=== PATIENT | female | born 1950 | race Caucasian/White ===

== ENCOUNTER 2017-10-11 18:45 | Inpatient (IN) ==
[2017-10-11] MEDS ORDERED: Vancomycin 1,750 MG in D5% in Water 250 ML IVPB ONE (19:18)
--- NOTE | 2017-10-11 19:29 | Emergency Department Note ---
Disposition Clinical Impression: Cellulitis Qualifiers: Site of cellulitis: extremity Site of cellulitis of extremity: lower extremity Laterality: right Qualified Code(s): L03.115 - Cellulitis of right lower limb Disposition: Admitted As Inpatient Condition: Fair Time of Disposition: 20:58 Extremity Problem HPI - General Chief complaint: ED Extremity Problem,Nontraumatic Stated complaint: RIGHT HIP PAIN/SWELLING Time Seen by Provider: 10/11/17 18:49 Source: other Limitations: other Nursing Notes Reviewed: Yes Vital Signs Reviewed: Yes - History of Present Illness HPI Narrative: Patient presents with right leg and hip pain which began today with associated redness which is progressive and constant and this was noticed by the caregivers today. There is no fever. Minimal confusion which is hard to differentiate as the patient does have a history of MRDD. [facility] No vomiting. Patient does have a history of a right hip replacement several years ago with then a joint infection which was treated in [place]. There is pain with range of motion of the hip. Social history: snf Pain Scale: 5 - Related Data Home Medications Medication Instructions Recorded Confirmed Acetaminophen [Tylenol] 650 mg PO Q4H PRN 10/18/15 10/11/17 Atorvastatin Calcium [Lipitor] 20 mg PO HS 10/18/15 10/11/17 Benztropine [Cogentin] 0.5 mg PO HS 10/18/15 10/11/17 Calcium Carbonate/Vitamin D3 1 each PO BID 10/18/15 10/11/17 [Calcium 500-Vit D3 400 Tablet] Clomipramine HCl [Anafranil] 50 mg PO HS 10/18/15 10/11/17 Furosemide [Lasix] 20 mg PO DAILY 10/18/15 10/11/17 Loratadine [Claritin] 10 mg PO DAILY 10/18/15 10/11/17 Magnesium Hydroxide [Milk of 30 ml PO DAILY PRN 10/18/15 10/11/17 Magnesia] Omeprazole [PriLOSEC] 20 mg PO DAILY 10/18/15 10/11/17 Amino AC/Protein Hydr/Whey Pro 30 ml PO TID 10/11/17 10/11/17 [Prosource Plus Liquid Packet] Carvedilol 3.125 mg PO BID 10/11/17 10/11/17 Ferrous Sulfate 325 mg PO TID 10/11/17 10/11/17 Levothyroxine [Synthroid] 25 mcg PO 0630 10/11/17 10/11/17 Multivitamin [One Daily Essential] 1 each PO DAILY 10/11/17 10/11/17 Nystatin POWDER [Nystop] 1 appl TP DAILY 10/11/17 10/11/17 OLANZapine [Zyprexa] 5 mg PO HS 10/11/17 10/11/17 Polyethylene Glycol 3350 [MiraLAX] 17 gm PO DAILY 10/11/17 10/11/17 Rivaroxaban [Xarelto] 20 mg PO DAILY 10/11/17 10/11/17 Allergies Allergy/AdvReac Type Severity Reaction Status Date / Time No Known Allergies Allergy Verified 10/11/17 20:08 Review of Systems: Constitutional: No fever Vision: No blurred vision ENT: No rhinorrhea Respiratory: No cough Allergic: No allergies : No blood in urine GI: No blood in stool Hematologic: No bruising Dermatologic: + skin rash Musculoskeletal: + pain in the extremities Neuro: No numbness of the extremities Past Medical History - Past Medical History Medical history: Reports: arthritis, CHF, dementia, glaucoma, hyperlipidemia, hypertension, osteoporosis, seizures Surgical history: Reports: no surgical history Psychiatric history: Reports: anxiety, bipolar, depression - Social History Smoking Status: Never smoker Smokeless Tobacco Status: No Alcohol use: Reports: none Drug use: Reports: none Physical Exam CONSTITUTIONAL: Alert and oriented X3, well-nourished, well appearing, in no apparent distress HEAD: Normocephalic; atraumatic. EYES: PERRL, no scleral icterus. NOSE: The nose is normal in appearance without rhinorrhea RESP: Normal chest excursion with respiration; breath sounds clear and equal bilaterally; no wheezes, rhonchi, or rales CARD: Regular rhythm, without murmurs, rub or gallop ABD: Non-distended; non-tender, soft,without rigidity, rebound or guarding SKIN: Normal for age and race; warm and dry; no apparent lesions Extremities: Does have generalized erythema of the right leg from the hip extending inferiorly and also extending to the pubic area medially. There is no crepitus, necrosis, fluctuance. There is some pain with range of motion of the right hip but not a significant severe amount of pain. Does have significant swelling right lower extremity - General Limitations: other General appearance: alert Course Vital Signs Temperature 97.9 F 10/11/17 18:47 Pulse Rate 96 10/11/17 18:47 Respiratory Rate 18 10/11/17 18:47 Blood Pressure 139/80 10/11/17 18:47 O2 Sat by Pulse Oximetry 98 10/11/17 18:47 Temperature 97.9 F 10/11/17 18:47 Pulse Rate 100 10/11/17 20:50 Respiratory Rate 20 10/11/17 20:50 Blood Pressure 133/79 10/11/17 20:50 O2 Sat by Pulse Oximetry 95 10/11/17 20:50 Oxygen Delivery Oxygen Delivery Room Air Extremity Problem, Nontraumati - MDM Narrative Medical decision making narrative: Patient does have a clinically diagnosed cellulitis of the right lower extremity , the hip x-rays being done however does not have significant pain with range of motion of the right hip but this is concerning based on the fact she does have a prosthetic joint. Doppler study will be done also because her significant swelling of the right lower extremity in addition to the generalized erythema. Patient is started on vancomycin. Will be admitted to medicine 0 I did speak with the hospitalist who accepted the patient for admission. I did speak with Dr. Hopper from orthopedics and he request out on a CRP and a CT scan and he will follow the results of these in the morning. The patient is not septic in appearance. His conversational. Breathing comfortably. No increased confusion from baseline. 2017 Doppler neg for clot but leg incompletely visualized 2051 - Medical Records Medical records reviewed: Yes I reviewed the patient's medical records. - Lab Data Result diagrams: 10/11/17 19:52 10/11/17 19:52 Lab Results 10/11/17 10/11/17 10/11/17 Range/Units 19:52 19:52 19:52 WBC 7.5 (4.3-11.1) K/mcL RBC 4.12 (3.82-4.97) M/mcL Hgb 11.8 (11.5-15.4) g/dL Hct 37.8 (35.3-44.9) % MCV 91.7 (83.0-100.0) fL MCH 28.6 (28.0-33.3) pg MCHC 31.2 L (31.6-35.5) g/dL RDW 13.5 (11.5-14.5) % Plt Count 88 L (140-400) K/mcL MPV 11.8 (9.4-12.4) fL Immature Plt Fraction 6.3 H (1.1-6.1) % ESR >= 130 H (0-15) mm/hr Sodium 141 (136-145) mEq/L Potassium 4.2 (3.5-4.5) mEq/L Chloride 102 (98-109) mEq/L Carbon Dioxide 31 H (19-29) mEq/L BUN 54 H (7-20) mg/dL Creatinine 1.45 H (0.57-1.11) mg/dL Est GFR ( Amer) 44 L (> 60) Est GFR (Non-Af Amer) 36 L (> 60) BUN/Creatinine Ratio 37 H (6-26) Glucose 92 (70-99) mg/dL Calculated Osmolality 306 H (280-300) Lactic Acid (0.5-2.2) mmol/L Calcium 10.4 (8.6-10.8) mg/dL C-Reactive Protein (Less than 5) mg/L 10/11/17 10/11/17 Range/Units 19:52 20:25 WBC (4.3-11.1) K/mcL RBC (3.82-4.97) M/mcL Hgb (11.5-15.4) g/dL Hct (35.3-44.9) % MCV (83.0-100.0) fL MCH (28.0-33.3) pg MCHC (31.6-35.5) g/dL RDW (11.5-14.5) % Plt Count (140-400) K/mcL MPV (9.4-12.4) fL Immature Plt Fraction (1.1-6.1) % ESR (0-15) mm/hr Sodium (136-145) mEq/L Potassium (3.5-4.5) mEq/L Chloride (98-109) mEq/L Carbon Dioxide (19-29) mEq/L BUN (7-20) mg/dL Creatinine (0.57-1.11) mg/dL Est GFR ( Amer) (> 60) Est GFR (Non-Af Amer) (> 60) BUN/Creatinine Ratio (6-26) Glucose (70-99) mg/dL Calculated Osmolality (280-300) Lactic Acid 0.8 (0.5-2.2) mmol/L Calcium (8.6-10.8) mg/dL C-Reactive Protein 211 H (Less than 5) mg/L
[2017-10-11] MEDS ORDERED: Vancomycin 1,750 MG in D5% in Water 500 ML IVPB ONE (19:31)
[2017-10-11 20:06] LABS: Hemoglobin 11.8 g/dL (11.5-15.4)
[2017-10-11 20:07] LABS: Hematocrit 37.8 % (35.3-44.9); Immature Platelets 6.3 % (1.1-6.1); Mean Corpuscular HGB Conc 31.2 g/dL (31.6-35.5); Mean Corpuscular Hemoglobin 28.6 pg (28.0-33.3); Mean Corpuscular Volume 91.7 fL (83.0-100.0); Mean Platelet Volume 11.8 fL (9.4-12.4); Red Blood Count 4.12 M/mcL (3.82-4.97); Red Cell Distribution Width 13.5 % (11.5-14.5)
[2017-10-11 20:22] LABS: Calcium 10.4 mg/dL (8.6-10.8); Potassium 4.2 mEq/L (3.5-4.5)
[2017-10-11] MEDS ORDERED: Ondansetron 4 MG/2 ML VIAL IVP PRN (23:00)
[2017-10-11] MEDS ORDERED: Naloxone 0.4 MG/ML INJ IVP PRN (23:00)
[2017-10-11] MEDS ORDERED: Acetaminophen 325 MG TABLET PO PRN (23:00)
[2017-10-11] MEDS ORDERED: *HR* HYDROcodone/Acet 5/325 mg TABLET PO PRN (23:00)
[2017-10-11] MEDS ORDERED: MOM Conc 10 ML UD.LIQ PO PRN (23:02)
--- NOTE | 2017-10-11 23:10 | Internal Med History&Physical ---
<Jay De Leon T - Last Filed: 10/12/17 01:28> Date of Encounter: 10/12/17 Assessment and Plan (1) Septic arthritis Current visit: Yes Status: Suspected Qualifiers: Septic arthritis location: hip Septic arthritis organism: due to unspecified organism Laterality: right Qualified Code(s): M00.9 - Pyogenic arthritis, unspecified (2) Cellulitis Current visit: Yes Status: Acute Qualifiers: Site of cellulitis: extremity Site of cellulitis of extremity: lower extremity Laterality: right Qualified Code(s): L03.115 - Cellulitis of right lower limb Internal Medicine - H&P: HPI History of present illness: Ms. Salamanca is a 67 year old female Internal Medicine - H&P: Meds Acetaminophen [Tylenol] 650 mg PO Q4H PRN 10/18/15 [History] Atorvastatin Calcium [Lipitor] 20 mg PO HS 10/18/15 [History] Benztropine [Cogentin] 0.5 mg PO HS 10/18/15 [History] Calcium Carbonate/Vitamin D3 [Calcium 500-Vit D3 400 Tablet] 1 each PO BID 10/18 [History] Clomipramine HCl [Anafranil] 50 mg PO HS 10/18/15 [History] Furosemide [Lasix] 20 mg PO DAILY 10/18/15 [History] Loratadine [Claritin] 10 mg PO DAILY 10/18/15 [History] Magnesium Hydroxide [Milk of Magnesia] 30 ml PO DAILY PRN 10/18/15 [History] Omeprazole [PriLOSEC] 20 mg PO DAILY 10/18/15 [History] Amino AC/Protein Hydr/Whey Pro [Prosource Plus Liquid Packet] 30 ml PO TID 10/11 [History] Carvedilol 3.125 mg PO BID 10/11/17 [History] Ferrous Sulfate 325 mg PO TID 10/11/17 [History] Levothyroxine [Synthroid] 25 mcg PO 0630 10/11/17 [History] Multivitamin [One Daily Essential] 1 each PO DAILY 10/11/17 [History] Nystatin POWDER [Nystop] 1 appl TP DAILY 10/11/17 [History] OLANZapine [Zyprexa] 5 mg PO HS 10/11/17 [History] Polyethylene Glycol 3350 [MiraLAX] 17 gm PO DAILY 10/11/17 [History] Rivaroxaban [Xarelto] 20 mg PO DAILY 10/11/17 [History] 3 Allergy/AdvReac Type Severity Reaction Status Date / Time No Known Allergies Allergy Verified 10/11/17 20:08 All Systems PM: A 10-system review of systems was performed and is negative for pertinent findings except as documented above in the HPI. - Constitutional Vitals: Temp Pulse Resp BP Pulse Ox 99.9 F H 97 15 97/60 94 10/11/17 22:29 10/11/17 22:29 10/11/17 22:29 10/11/17 22:29 10/11/17 22:29 Internal Med - H&P Results - Labs CBC & Chem 7: 10/11/17 19:52 10/11/17 19:52 - Attending Attestation I have seen and examined this patient independently and discussed plan with medicine resident 67 F with MRDD, Morbid Obesity, Hypothyroid, hx of DVT o Xarelto, HLD, HTN, CKD. She is accompanied to [facility] with correction staff following complains of pain and redness of her RLE She is not a reliable historian due to MRDD Exam significant for diffuse erythema, differential warmth of her entire RLE. NO visible abscess collection, pulses are present. ROM is limited at the hip. No fluctuancy. No induration. Chest is CTAB, HS S1, S2, no m/g/r, abdomen is obese and not tender. Vitals are stable and she is afebrile. Labs and Imaging reviewed. Right hip CT with evidence of cellulitis, no OM, joint effusion. CRP and ESR elevated, no leukocytosis. Chem is at baseline. Lactate is normal A/P Cellulitis Suspect R hip septic arthritis-hx of R hip arthroplasty/ORIF. with hx of septic arthirits, elevated ESR and joint effusion is present MRDD/HTN/HLD Agree with IV antibiotics-IR for joint aspiration and send fluid for culture, follow blood cultures, ortho eval. Hold xarelto for joint aspiration Give gentle hydration Chronic medical conditions are stable Rest of details as in resident physicians documentation <Frank Abraham - Last Filed: 10/12/17 01:35> Date of Encounter: 10/12/17 Time of Encounter: 23:07 Assessment and Plan (1) Cellulitis Current visit: Yes Status: Acute - Right hip pain, erythema, swelling likely secondary to cellulitits. - other possible etiology of septic arthritis. Ortho consulted in ED. - Ortho will see in AM. - CRP 211 and ESR >130 - Pt is non septic. Afebile, no WBC - Will start vancomycin and schedule IR for joint aspiration. Qualifiers: Site of cellulitis: extremity Site of cellulitis of extremity: lower extremity Laterality: right Qualified Code(s): L03.115 - Cellulitis of right lower limb (2) Hypertension Current visit: Yes Status: Chronic - BP under control, will continue home meds. Qualifiers: Hypertension type: essential hypertension Qualified Code(s): I10 - Essential (primary) hypertension (3) Dyslipidemia Current visit: No Status: Chronic - Stable. Continue home meds. (4) Cognitive impairment Current visit: Yes Status: Chronic - Pt appears to be at baseline per correction report. - Will be discharged back to correction once therapy has been completed. (5) Chronic kidney disease Current visit: Yes Status: Acute - BUN/Cr at baseline from labs in 2014. - Avoid nephrotoxic drugs as much as possible. Qualifiers: Chronic kidney disease stage: stage 3 (moderate) Qualified Code(s): N18.3 - Chronic kidney disease, stage 3 (moderate) (6) DVT prophylaxis Current visit: Yes Status: Acute - Holding anticoagulation for IR joint aspiration tomorrow. Internal Medicine - H&P: HPI Chief complaint: right hip pain Admitted From: Emergency Dept Plans for Post Hospital Care: Home History of present illness: Ms. Salamanca is a 67 year old female with past medical history of MRDD presents to emergency department from correction with a complaint of right hip pain since yesterday. Patient states that she has noticed some redness and swelling in the area of the right hip but denies any symptoms of fevers, chills , limited range of motion, numbness, tingling. Initially, she does state that she has never expanded problem with his hip before, however upon examination involving scar tissue, she does state that she had a right hip replacement. Per chart review, she had a hip replacement approximately 3-5 years ago at [facility]. She denies any other symptoms at this time. Patient does not appear to be a reliable historian. Information gathered from correction only state that she is to be on soft diet. She reports getting around on with a wheelchair. In the emergency department, vital signs are stable. Patient does not appear septic at this time. Lab results were significant for elevated ESR, CRP, BUN/ creatinine appears to be at baseline level from previous visits. Hip x-ray revealed no acute process. Orthopedic surgery was contacted and emergency department and recommended drawing levels of CRP and ESR as well as a right hip CT scan. CT scan revealed no evidence for hardware complication or failure. Small non-specific right hip effusion. no evidence of osteomyelitis or osteolysis. Asymmetric subcutaneous edema and skin thickening of the visualized proximal right thigh when compared with the left. Past Med Surg Social Fam HX - Past Medical History Medical history: arthritis, CHF, dementia, glaucoma, hyperlipidemia, hypertension, osteoporosis, seizures Psychiatric history: anxiety, bipolar, depression - Past Surgical History Surgical History: no surgical history - Social History Smoking Status: Never smoker Smokeless Tobacco Status: No Alcohol use: none Drug use: none - Family History Mother History Unknown: Yes All Systems PM: A 10-system review of systems was performed and is negative for pertinent findings except as documented above in the HPI. - Constitutional Constitutional: no chills, no fatigue, no fever(s) - Cardiovascular Cardiovascular ROS IM: edema, no chest pain, no dyspnea, no dyspnea on exertion - Respiratory Respiratory: cough, no dyspnea, no dyspnea on exertion - Gastrointestinal Gastrointestinal: no constipation, no diarrhea, no nausea, no vomiting - Genitourinary Genitourinary: no dysuria - Musculoskeletal Musculoskeletal ROS IM: as per HPI, no limited range of motion, no myalgias, no numbness, no tingling Additional comments: swelling, erythema, warmth of right hip - Integumentary Integumentary IM: erythema - Neurological Neurological ROS: abnormal gait (wheelchair bound), no focal weakness, no numbness, no paresthesias, no tingling - Constitutional Vitals: Temp Pulse Resp BP Pulse Ox 99.9 F H 97 15 97/60 94 10/11/17 22:29 10/11/17 22:29 10/11/17 22:29 10/11/17 22:29 10/11/17 22:29 Exam: Gen.: Vitals noted. No acute distress. Resting comfortably in bed. HEENT: oropharynx clear, Normocephalic, atraumatic, MMM Cardiac: RRR, no murmur, +S1/S2 Pulmonary: CTA bilaterally, no wheezes, rales or rhonchi, equal chest expansion Abdomen: soft, nontender, BS noted, no guarding MSK: ROM appears to be intact. Muscle strength 5/5. Noted swelling, warmth, erythema of right hip extending to mid thigh. Extremities: 1+ edema in B/l LE, nontender calf, no cyanosis or clubbing Neuro: moves all extremities, no focal deficits Internal Med - H&P Results - Labs CBC & Chem 7: 10/11/17 19:52 10/11/17 19:52
[2017-10-11] MEDS ORDERED: Vancomycin 1,750 MG in D5% in Water 250 ML IVPB SCH (23:45)
[2017-10-12] MEDS ORDERED: 0.9 % Sodium Chloride 500 ML IVC ONE (01:30)
[2017-10-12 05:24] LABS: Basophils % 0.2 %; Hematocrit 34.6 % (35.3-44.9); Hemoglobin 10.6 g/dL (11.5-15.4); Mean Corpuscular HGB Conc 30.6 g/dL (31.6-35.5); Mean Corpuscular Hemoglobin 28.1 pg (28.0-33.3); Mean Corpuscular Volume 91.8 fL (83.0-100.0); Red Blood Count 3.77 M/mcL (3.82-4.97); Segmented Neutrophils % 73.6 %
[2017-10-12 05:27] LABS: Eosinophils % 0.8 %; Immature Granulocytes % 0.4 % (0-4); Lymphocytes # 0.8 K/mcL (0.6-4.6); Lymphocytes % 15.4 %; Mean Platelet Volume 11.6 fL (9.4-12.4); Monocytes # 0.5 K/mcL (0.0-1.3); Monocytes % 9.6 %; Red Cell Distribution Width 13.5 % (11.5-14.5)
[2017-10-12 05:32] LABS: Neutrophils # 3.8 K/mcL (1.6-8.9); Platelet Count 75 K/mcL (140-400)
[2017-10-12 05:35] LABS: Calcium 9.6 mg/dL (8.6-10.8)
[2017-10-12] MEDS: Levothyroxine 25 MCG TABLET PO SCH (05:44)
[2017-10-12] MEDS ORDERED: Vancomycin 1,250 MG in D5% in Water 250 ML IVPB SCH ×2 (08:00→20:00)
--- NOTE | 2017-10-12 08:33 | Orthopedic Consult Note ---
Date of Encounter: 10/12/17 Time of Encounter: 08:30 History of Present Illness HPI: Ms. Salamanca is a 67 year old female Status post right hip open reduction intramedullary nail fixation. Patient with a history of previous right lower extremity infection treated with antibiotics in [place]. Patient presents with pain swelling and erythema right lower extremity. Physical exam patient swelling and erythema Right lower extremity Neurovascular intact No signs of compartment syndrome Minimal pain with hip motion Elevated ESR elevated CRP X-rays healed right IM fixation of hip fracture CT scan slight fluid in the joint We will have IR aspirate hip to rule out intra-articular process Past Med Surg Social Fam HX - Past Medical History Medical history: arthritis, CHF, dementia, glaucoma, hyperlipidemia, hypertension, osteoporosis, seizures Psychiatric history: anxiety, bipolar, depression - Past Surgical History Surgical History: no surgical history - Social History Smoking Status: Never smoker Smokeless Tobacco Status: No Alcohol use: none Drug use: none - Family History Mother History Unknown: Yes Medications and Allergies Acetaminophen [Tylenol] 650 mg PO Q4H PRN 10/18/15 [History] Atorvastatin Calcium [Lipitor] 20 mg PO HS 10/18/15 [History] Benztropine [Cogentin] 0.5 mg PO HS 10/18/15 [History] Calcium Carbonate/Vitamin D3 [Calcium 500-Vit D3 400 Tablet] 1 each PO BID 10/18 [History] Clomipramine HCl [Anafranil] 50 mg PO HS 10/18/15 [History] Furosemide [Lasix] 20 mg PO DAILY 10/18/15 [History] Loratadine [Claritin] 10 mg PO DAILY 10/18/15 [History] Magnesium Hydroxide [Milk of Magnesia] 30 ml PO DAILY PRN 10/18/15 [History] Omeprazole [PriLOSEC] 20 mg PO DAILY 10/18/15 [History] Amino AC/Protein Hydr/Whey Pro [Prosource Plus Liquid Packet] 30 ml PO TID 10/11 [History] Carvedilol 3.125 mg PO BID 10/11/17 [History] Ferrous Sulfate 325 mg PO TID 10/11/17 [History] Levothyroxine [Synthroid] 25 mcg PO 0630 10/11/17 [History] Multivitamin [One Daily Essential] 1 each PO DAILY 10/11/17 [History] Nystatin POWDER [Nystop] 1 appl TP DAILY 10/11/17 [History] OLANZapine [Zyprexa] 5 mg PO HS 10/11/17 [History] Polyethylene Glycol 3350 [MiraLAX] 17 gm PO DAILY 10/11/17 [History] Rivaroxaban [Xarelto] 20 mg PO DAILY 10/11/17 [History] 3 Allergy/AdvReac Type Severity Reaction Status Date / Time No Known Allergies Allergy Verified 10/11/17 20:08 All Systems Reviewed: A 10-system review of systems was performed and is negative for pertinent findings except as documented above in the HPI. Physical Exam - Constitutional Vitals: Temp Pulse Resp BP Pulse Ox 98.7 F 95 16 126/74 95 10/12/17 07:09 10/12/17 07:09 10/12/17 07:09 10/12/17 07:09 10/12/17 07:09 Results - Labs Result Diagrams: 10/12/17 05:11 10/12/17 05:11 Labs: Abnormal lab results RBC 3.77 M/mcL (3.82-4.97) L 10/12/17 05:11 Hgb 10.6 g/dL (11.5-15.4) L 10/12/17 05:11 Hct 34.6 % (35.3-44.9) L 10/12/17 05:11 MCHC 30.6 g/dL (31.6-35.5) L 10/12/17 05:11 Plt Count 75 K/mcL (140-400) L 10/12/17 05:11 ESR >= 130 mm/hr (0-15) H 10/11/17 19:52 Carbon Dioxide 32 mEq/L (19-29) H 10/12/17 05:11 BUN 50 mg/dL (7-20) H 10/12/17 05:11 Creatinine 1.55 mg/dL (0.57-1.11) H 10/12/17 05:11 Est GFR ( Amer) 40 (> 60) L 10/12/17 05:11 Est GFR (Non-Af Amer) 33 (> 60) L 10/12/17 05:11 BUN/Creatinine Ratio 32 (6-26) H 10/12/17 05:11 POC Glucose 127 (58-89) H 10/12/17 05:38 C-Reactive Protein 211 mg/L (Less than 5) H 10/11/17 19:52 H & H 10/12/17 Range/Units 05:11 Hgb 10.6 L (11.5-15.4) g/dL Hct 34.6 L (35.3-44.9) % All other labs normal. Consult Discharge Plan - Plan Referrals: Lasha Lopez [Primary Care Provider] -
[2017-10-12] MEDS: Nystatin POWDER 30 GM BOTTLE TP SCH (09:16)
[2017-10-12] MEDS: Furosemide 20 MG TABLET PO SCH (09:16)
--- NOTE | 2017-10-12 14:12 | Internal Med Progress Note ---
Date of Encounter: 10/12/17 Time of Encounter: 10:10 - Assessment and plan (1) Cellulitis Current Visit: Yes Status: Acute Assessment and plan: Continue current antibiotics. Concerning for underlying septic arthritis. Orthopedics consulted. Plan for IR joint aspiration. Moderate risk for complications. Qualifiers: Site of cellulitis: extremity Site of cellulitis of extremity: lower extremity Laterality: right Qualified Code(s): L03.115 - Cellulitis of right lower limb (2) Septic arthritis Current Visit: Yes Status: Suspected Assessment and plan: Orthopedics following. Interventional radiology has been consulted for joint aspiration. Unable to do the procedure today as patient received Xarelto yesterday. This medication is currently on hold. Qualifiers: Septic arthritis location: hip Septic arthritis organism: due to unspecified organism Laterality: right Qualified Code(s): M00.9 - Pyogenic arthritis, unspecified (3) Hypertension Current Visit: Yes Status: Chronic Qualifiers: Hypertension type: essential hypertension Qualified Code(s): I10 - Essential (primary) hypertension (4) Dyslipidemia Current Visit: Yes Status: Chronic Assessment and plan: Continue atorvastatin (5) Cognitive impairment Current Visit: Yes Status: Chronic Assessment and plan: Continue Cogentin and clomipramine (6) DVT prophylaxis Current Visit: Yes Status: Acute Assessment and plan: Patient on Xarelto at home. We will hold this medication for planned procedure. We will use SCDs in the meantime (7) Chronic kidney disease Current Visit: Yes Status: Chronic Assessment and plan: Creatinine 1.55 today. At her baseline. Qualifiers: Chronic kidney disease stage: stage 3 (moderate) Qualified Code(s): N18.3 - Chronic kidney disease, stage 3 (moderate) - Subjective Interval history: Patient is lying in bed. Appears comfortable. Denies any complaints at this time. Denies any pain in her right hip. Does not complain of any fever. She did have a temperature of 99.8 early this morning. - Constitutional Vitals: Temp Pulse Resp BP Pulse Ox 98.5 F 90 16 98/63 93 10/12/17 11:20 10/12/17 11:20 10/12/17 11:20 10/12/17 11:20 10/12/17 11:20 General appearance: Present: cooperative, A&O X 3, answers questions appropriately - Respiratory Respiratory exam: Present: CTAB. Absent: accessory muscle use, rales, rhonchi, wheezes - Cardiovascular Cardiovascular exam: Present: RRR, +S1, +S2. Absent: diastolic murmur, gallop, rubs, systolic murmur - GI/Abdominal GI/Abdominal exam: Present: normal bowel sounds, soft, no peritoneal signs. Absent: distended, tenderness - Extremities Exam Extremities exam: Present: warm, radial pulses palpable and symmetrical. Absent : calf tenderness, cyanotic, pedal edema Additional comments: Erythema and cellulitis around the lateral upper thigh. Nontender to palpation. No obvious joint swelling palpable. - Neurological Exam Neurological exam: Present: CN II-XII intact, oriented X3, no focal deficits. Absent: facial droop, speech deficit - Skin Skin exam: Present: dry, intact Internal Medicine: Result - Labs CBC & Chem 7: 10/12/17 05:11 10/12/17 05:11 Labs: Short CBC 10/12/17 Range/Units 05:11 WBC 5.1 (4.3-11.1) K/mcL Hgb 10.6 L (11.5-15.4) g/dL Hct 34.6 L (35.3-44.9) % Plt Count 75 L (140-400) K/mcL Neutrophils # 3.8 (1.6-8.9) K/mcL BMP 10/12/17 05:11 Sodium 139 Potassium 4.0 Chloride 102 Carbon Dioxide 32 H BUN 50 H Creatinine 1.55 H Glucose 79 Calcium 9.6 Consult Discharge Plan - Plan Referrals: Lasha Lopez [Primary Care Provider] -
[2017-10-12] MEDS: OLANZapine 5 MG TAB.RAPDIS PO SCH (20:13)
[2017-10-13] MEDS: Levothyroxine 25 MCG TABLET PO SCH (06:52)
[2017-10-13 07:02] LABS: Basophils % 0.2 %; Eosinophils # 0.1 K/mcL (0.0-0.6); Eosinophils % 2.4 %; Hematocrit 37.3 % (35.3-44.9); Hemoglobin 11.4 g/dL (11.5-15.4); Immature Granulocytes % 0.7 % (0-4); Lymphocytes # 1.2 K/mcL (0.6-4.6); Lymphocytes % 26.3 %; Mean Corpuscular HGB Conc 30.6 g/dL (31.6-35.5); Mean Corpuscular Hemoglobin 28.2 pg (28.0-33.3); Mean Corpuscular Volume 92.3 fL (83.0-100.0); Mean Platelet Volume 12.1 fL (9.4-12.4); Monocytes # 0.5 K/mcL (0.0-1.3); Neutrophils # 2.7 K/mcL (1.6-8.9); Red Blood Count 4.04 M/mcL (3.82-4.97); Red Cell Distribution Width 13.5 % (11.5-14.5); Segmented Neutrophils % 60.4 %
[2017-10-13 07:03] LABS: Platelet Count 78 K/mcL (140-400)
[2017-10-13 07:15] LABS: Calcium 9.9 mg/dL (8.6-10.8); Potassium 3.7 mEq/L (3.5-4.5)
[2017-10-13] MEDS: Furosemide 20 MG TABLET PO SCH (09:50)
[2017-10-13 11:14] LABS: Appearance,Synovial Fluid Cloudy (Clear-Hazy); Color,Synovial Fluid Red (Straw)
--- NOTE | 2017-10-13 14:02 | Internal Med Progress Note ---
Date of Encounter: 10/13/17 Time of Encounter: 10:15 - Assessment and plan (1) Cellulitis Current Visit: Yes Status: Acute Assessment and plan: Improving. Continue vancomycin. Await culture results from synovial fluid aspiration. Gram stain does not show any bacteria and few white blood cells. Cell count shows 72 neutrophils. Orthopedics following. Moderate risk for complications. Trend ESR CRP Qualifiers: Site of cellulitis: extremity Site of cellulitis of extremity: lower extremity Laterality: right Qualified Code(s): L03.115 - Cellulitis of right lower limb (2) Septic arthritis Current Visit: Yes Status: Suspected Assessment and plan: Status post right hip arthrocentesis. Will follow culture results. Continue vancomycin. Qualifiers: Septic arthritis location: hip Septic arthritis organism: due to unspecified organism Laterality: right Qualified Code(s): M00.9 - Pyogenic arthritis, unspecified (3) Hypertension Current Visit: Yes Status: Chronic Assessment and plan: Well-controlled Qualifiers: Hypertension type: essential hypertension Qualified Code(s): I10 - Essential (primary) hypertension (4) Dyslipidemia Current Visit: Yes Status: Chronic Assessment and plan: Continue atorvastatin (5) Cognitive impairment Current Visit: Yes Status: Chronic (6) DVT prophylaxis Current Visit: Yes Status: Acute Assessment and plan: We will resume Xarelto (7) Chronic kidney disease Current Visit: Yes Status: Chronic Assessment and plan: Renal function remains stable. Qualifiers: Chronic kidney disease stage: stage 3 (moderate) Qualified Code(s): N18.3 - Chronic kidney disease, stage 3 (moderate) - Subjective Interval history: Patient is awake and alert. Sitting up in bed. Underwent right hip arthrocentesis earlier this morning. Tolerated procedure well. Denies any pain in right hip at this time. No fever reported overnight. - Constitutional Vitals: Temp Pulse Resp BP Pulse Ox 98.6 F 75 18 123/81 100 10/13/17 11:13 10/13/17 11:13 10/13/17 11:13 10/13/17 11:13 10/13/17 11:13 General appearance: Present: cooperative, A&O X 3, answers questions appropriately - Neck Neck exam general surgery: Present: supple, trachea midline. Absent: lymphadenopathy - Respiratory Respiratory exam: Present: CTAB. Absent: accessory muscle use, rales, rhonchi, wheezes - Cardiovascular Cardiovascular exam: Present: RRR, +S1, +S2. Absent: diastolic murmur, gallop, rubs, systolic murmur - GI/Abdominal GI/Abdominal exam: Present: normal bowel sounds, soft, tenderness (And erythema involving the right hip and lateral thigh region. Improving), no peritoneal signs. Absent: distended - Extremities Exam Extremities exam: Present: warm, radial pulses palpable and symmetrical. Absent : calf tenderness, cyanotic, pedal edema - Neurological Exam Neurological exam: Present: alert, CN II-XII intact, oriented X3, no focal deficits. Absent: facial droop, speech deficit - Skin Skin exam: Present: dry, intact Internal Medicine: Result - Labs CBC & Chem 7: 10/13/17 06:15 10/13/17 06:15 Labs: Short CBC 10/13/17 Range/Units 06:15 WBC 4.5 (4.3-11.1) K/mcL Hgb 11.4 L (11.5-15.4) g/dL Hct 37.3 (35.3-44.9) % Plt Count 78 L (140-400) K/mcL Neutrophils # 2.7 (1.6-8.9) K/mcL BMP 10/13/17 06:15 Sodium 142 Potassium 3.7 Chloride 104 Carbon Dioxide 31 H BUN 40 H D Creatinine 1.65 H Glucose 99 Calcium 9.9 - Impressions Impressions Joint Aspiration/Injection 10/13/17 08:53 IMPRESSION: 1. Initial aspiration of the right hip demonstrated no axel pus. Minimal thick synovial fluid was aspirated. 2. Nonbacteriostatic sterile saline was injected lavaging the right hip with return of the fluid placed in test tubes and sent to the laboratory for evaluation. D/ / 10/13/2017 11:29:51 Santana Patel MD / alexis Interpreting Provider: Santana Patel MD Consult Discharge Plan - Plan Referrals: Lasha Lopez [Primary Care Provider] -
[2017-10-13] MEDS: Nystatin POWDER 30 GM BOTTLE TP SCH (14:03)
[2017-10-13] MEDS: Vancomycin 1 EACH in D5% in Water (Mini-Bag+) 100 ML IVPB SCH (20:00)
[2017-10-13] MEDS: OLANZapine 5 MG TAB.RAPDIS PO SCH (20:08)
[2017-10-14] MEDS: Levothyroxine 25 MCG TABLET PO SCH (05:52)
[2017-10-14] MEDS: Furosemide 20 MG TABLET PO SCH (10:08)
[2017-10-14] MEDS: *HR* Rivaroxaban 10 MG TABLET PO SCH (10:08)
--- NOTE | 2017-10-14 10:27 | Internal Med Progress Note ---
Date of Encounter: 10/14/17 Time of Encounter: 09:15 - Assessment and plan (1) Cellulitis Current Visit: Yes Status: Acute Assessment and plan: Resolving. CRP is improving. No leukocytosis. Continue vancomycin. If patient continues to improve, she most likely will be discharged tomorrow. Moderate risk for complications. Qualifiers: Site of cellulitis: extremity Site of cellulitis of extremity: lower extremity Laterality: right Qualified Code(s): L03.115 - Cellulitis of right lower limb (2) Septic arthritis Current Visit: Yes Status: Suspected Assessment and plan: Awaiting synovial fluid culture results. Continue vancomycin for now. Qualifiers: Septic arthritis location: hip Septic arthritis organism: due to unspecified organism Laterality: right Qualified Code(s): M00.9 - Pyogenic arthritis, unspecified (3) Hypertension Current Visit: Yes Status: Chronic Assessment and plan: Blood pressure is fairly controlled. Continue carvedilol Qualifiers: Hypertension type: essential hypertension Qualified Code(s): I10 - Essential (primary) hypertension (4) Dyslipidemia Current Visit: Yes Status: Chronic (5) Cognitive impairment Current Visit: Yes Status: Chronic (6) DVT prophylaxis Current Visit: Yes Status: Acute Assessment and plan: On Xarelto (7) Chronic kidney disease Current Visit: Yes Status: Chronic Assessment and plan: Renal function stable. Qualifiers: Chronic kidney disease stage: stage 3 (moderate) Qualified Code(s): N18.3 - Chronic kidney disease, stage 3 (moderate) - Subjective Interval history: Patient is comfortable in bed. Denies any new complaints at this time. No pain or discomfort in her right hip region. - Constitutional Vitals: Temp Pulse Resp BP Pulse Ox 98.3 F 80 17 143/75 93 10/14/17 07:11 10/14/17 07:11 10/14/17 07:11 10/14/17 07:11 10/14/17 07:11 General appearance: Present: cooperative, A&O X 2, answers questions appropriately - Neck Neck exam general surgery: Present: supple, trachea midline. Absent: lymphadenopathy - Respiratory Respiratory exam: Present: CTAB. Absent: accessory muscle use, rales, rhonchi, wheezes - Cardiovascular Cardiovascular exam: Present: RRR, +S1, +S2. Absent: diastolic murmur, gallop, rubs, systolic murmur - GI/Abdominal GI/Abdominal exam: Present: normal bowel sounds, soft, no peritoneal signs. Absent: distended, tenderness - Extremities Exam Extremities exam: Present: warm, radial pulses palpable and symmetrical. Absent : calf tenderness, cyanotic, pedal edema, tenderness Additional comments: Right hip and thigh Cellulitis has mostly subsided. - Neurological Exam Neurological exam: Present: alert, no focal deficits. Absent: facial droop, speech deficit Internal Medicine: Result - Labs CBC & Chem 7: 10/13/17 06:15 10/13/17 06:15 - Impressions Impressions Joint Aspiration/Injection 10/13/17 08:53 IMPRESSION: 1. Initial aspiration of the right hip demonstrated no axel pus. Minimal thick synovial fluid was aspirated. 2. Nonbacteriostatic sterile saline was injected lavaging the right hip with the returned fluid placed in test tubes and sent to the laboratory for evaluation. D/ / 10/13/2017 11:29:51 Santana Patel MD / alexis Interpreting Provider: Santana Patel MD Consult Discharge Plan - Plan Referrals: Lasha Lopez [Primary Care Provider] -
[2017-10-14] MEDS: Nystatin POWDER 30 GM BOTTLE TP SCH (11:23)
[2017-10-14] MEDS: Vancomycin 1 EACH in D5% in Water (Mini-Bag+) 100 ML IVPB SCH ×2 (14:25→23:43)
[2017-10-14] MEDS: OLANZapine 5 MG TAB.RAPDIS PO SCH (21:27)
[2017-10-15] MEDS: Levothyroxine 25 MCG TABLET PO SCH (08:12)
[2017-10-15] MEDS: *HR* Rivaroxaban 10 MG TABLET PO SCH (08:13)
[2017-10-15] MEDS: Vancomycin 1 EACH in D5% in Water (Mini-Bag+) 100 ML IVPB SCH (08:13)
[2017-10-15] MEDS: Nystatin POWDER 30 GM BOTTLE TP SCH (08:13)
[2017-10-15] MEDS: Furosemide 20 MG TABLET PO SCH (08:14)
--- NOTE | 2017-10-15 10:08 | Discharge Summary ---
Date of Encounter: 10/15/17 Time of Encounter: 10:05 - Discharge Diagnosis (1) Cellulitis Priority: Primary Status: Acute Qualifiers: Site of cellulitis: extremity Site of cellulitis of extremity: lower extremity Laterality: right Qualified Code(s): L03.115 - Cellulitis of right lower limb (2) Septic arthritis Priority: Secondary Status: Ruled-out Qualifiers: Septic arthritis location: hip Septic arthritis organism: due to unspecified organism Laterality: right Qualified Code(s): M00.9 - Pyogenic arthritis, unspecified (3) Hypertension Priority: Secondary Status: Chronic Qualifiers: Hypertension type: essential hypertension Qualified Code(s): I10 - Essential (primary) hypertension (4) Dyslipidemia Priority: Secondary Status: Chronic (5) Cognitive impairment Priority: Secondary Status: Chronic (6) DVT prophylaxis Priority: Secondary Status: Acute (7) Chronic kidney disease Priority: Secondary Status: Chronic Qualifiers: Chronic kidney disease stage: stage 3 (moderate) Qualified Code(s): N18.3 - Chronic kidney disease, stage 3 (moderate) - Discharge Medications Prescriptions: Ciprofloxacin [Cipro] 500 mg PO BID #20 tablet Doxycycline 100 mg PO BID #20 capsule Lactobacillus [Culturelle] 1 each PO BID #20 cap.sprink Home Medications: Acetaminophen [Tylenol] 650 mg PO Q4H PRN 10/18/15 [History] Atorvastatin Calcium [Lipitor] 20 mg PO HS 10/18/15 [History] Benztropine [Cogentin] 0.5 mg PO HS 10/18/15 [History] Calcium Carbonate/Vitamin D3 [Calcium 500-Vit D3 400 Tablet] 1 each PO BID 10/18 [History] Clomipramine HCl [Anafranil] 50 mg PO HS 10/18/15 [History] Furosemide [Lasix] 20 mg PO DAILY 10/18/15 [History] Loratadine [Claritin] 10 mg PO DAILY 10/18/15 [History] Magnesium Hydroxide [Milk of Magnesia] 30 ml PO DAILY PRN 10/18/15 [History] Omeprazole [PriLOSEC] 20 mg PO DAILY 10/18/15 [History] Amino AC/Protein Hydr/Whey Pro [Prosource Plus Liquid Packet] 30 ml PO TID 10/11 [History] Carvedilol 3.125 mg PO BID 10/11/17 [History] Ferrous Sulfate 325 mg PO TID 10/11/17 [History] Levothyroxine [Synthroid] 25 mcg PO 0630 10/11/17 [History] Multivitamin [One Daily Essential] 1 each PO DAILY 10/11/17 [History] Nystatin POWDER [Nystop] 1 appl TP DAILY 10/11/17 [History] OLANZapine [Zyprexa] 5 mg PO HS 10/11/17 [History] Polyethylene Glycol 3350 [MiraLAX] 17 gm PO DAILY 10/11/17 [History] Rivaroxaban [Xarelto] 20 mg PO DAILY 10/11/17 [History] Ciprofloxacin [Cipro] 500 mg PO BID #20 tablet 10/15/17 [Rx] Doxycycline 100 mg PO BID #20 capsule 10/15/17 [Rx] Lactobacillus [Culturelle] 1 each PO BID #20 cap.sprink 10/15/17 [Rx] Allergies/Adverse Reactions: 3 Allergy/AdvReac Type Severity Reaction Status Date / Time No Known Allergies Allergy Verified 10/11/17 20:08 Date of admission: 10/11/17 22:27 Primary care physician: Lasha Lopez Consults: 10/11/17 23:02 Consult to Interventional Radiology [CONS] Routine Consulting Provider: Radiology Interventional Cols Reason for Consult: right hip joint effusion tap. r/o septic arthritis Call Completed: No Discharging clinician: Fely Adorno Anticipated date of discharge: 10/15/17 - Patient Status Disposition: Home, Self-Care Condition: Good Functional capacity at discharge: uses cane/walker Overall status at discharge: patient is back to baseline - Discharge Instructions Instructions: Ciprofloxacin (By mouth), Doxycycline (By mouth), Probiotic (By mouth), Cellulitis (DC), Chronic Hypertension (DC) Follow Up With: Rick Guido MD [Partnered Physician] - 10/22/17 9:10 am - Diet and Activity Activity: increase activity as tolerated Diet: low fat, low cholesterol, low salt diet Hospital course: Ms. Salamanca is a 67 year old female patient with history of MRDD, morbid obesity, hypothyroidism and DVT was hospitalized here with cellulitis of the right hip region with concern for possible underlying septic arthritis. CT scan of the right hip joint showed subcutaneous edema with some small nonspecific right hip effusion. Interventional radiology and orthopedics were consulted. The joint was aspirated and does not appear to show any signs of infection at this time. Patient had been receiving intravenous antibiotics and her cellulitis has mostly subsided. At this time she has been cleared for discharge from an orthopedic standpoint. She will follow up with orthopedics as outpatient for further evaluation and management. She will be discharged home on ciprofloxacin and doxycycline to complete treatment course for cellulitis. - Time Spent with Patient Total time spent providing and/or coordinating discharge services: Greater than 30 minutes (35 min) - Constitutional Vitals: Temp Pulse Resp BP Pulse Ox 97.5 F L 76 16 115/67 99 10/14/17 23:52 10/14/17 23:52 10/14/17 23:52 10/14/17 23:52 10/15/17 08:26 General appearance: Present: cooperative, A&O X 2, answers questions appropriately - Respiratory Respiratory exam: Present: CTAB. Absent: accessory muscle use, rales, rhonchi, wheezes - Cardiovascular Cardiovascular exam: Present: RRR, +S1, +S2. Absent: diastolic murmur, gallop, rubs, systolic murmur - GI/Abdominal GI/Abdominal exam: Present: normal bowel sounds, soft, no peritoneal signs. Absent: distended, tenderness - Extremities Exam Extremities exam: Present: warm, radial pulses palpable and symmetrical. Absent : calf tenderness, cyanotic, pedal edema Additional comments: Right upper thigh cellulitis resolved - Neurological Exam Neurological exam: Present: alert, no focal deficits. Absent: facial droop, speech deficit - Skin Skin exam: Present: dry, intact
[2017-10-15 15:34] VITALS: BP 116/67
[2017-10-15] MEDS ORDERED: Aminoglycoside Consult 1 EACH MC ONE (16:07)
== END 2017-10-15 16:08 | disposition home or self-care (01) | DRG 603 ==
LOC: EMEROO 18:45 → 3ANU 18:45
PROVIDERS: ADMIT Internal Medicine; ATTEND Internal Medicine